=== PATIENT | female | born 1975 | race Hispanic/Latino ===

== ENCOUNTER 2018-04-26 17:23 | Emergency (ER) | payer OTHER ==
[~2018-04-26] VITALS: Ht 170.2 cm; Wt 85.5 kg
[2018-04-26 18:10] VITALS: BP 140/66
== END 2018-04-26 18:12 | disposition home or self-care (01) ==
LOC: FSED 17:23
DX: Z04.1 Encounter for examination and observation following transport accident (principal); Z33.1 Pregnant state, incidental; V43.52XA Car driver injured in collision with other type car in traffic accident, initial encounter; Y92.488 Other paved roadways as the place of occurrence of the external cause
CPT/HCPCS: 99282